=== PATIENT | male | born 1955 ===

== ENCOUNTER 2018-07-10 02:20 | Emergency (ER) | payer OTHER, SELFPAY ==
[2018-07-10 02:29] VITALS: BP 162/126; PULSE 131; RESP 18; TEMP 36.8; O2SAT 99; BMI 27.9
[2018-07-10 02:36] VITALS: BP 160/102; PULSE 78; RESP 14; O2SAT 100
[2018-07-10 03:30] VITALS: BP 125/84; PULSE 61; RESP 97; O2SAT 97
[2018-07-10 03:32] LABS: Add Manual Diff / Slide Review NO; Basophils Absolute Auto 0 /uL (0-100); Basophils Percent Auto 0.3 % (0-2); Eosinophils Absolute Auto 100 /uL (0-450); Eosinophils Percent Auto 1.3 % (2-4); Hematocrit 45.5 % (41-53); Hemoglobin 15.5 g/dL (13.5-17.5); Lymphocytes Absolute Auto 3700 /uL (1100-4500); Lymphocytes Percent Auto 47.8 % (25-40); Mean Corpuscular HGB Conc 34.1 % (30-36); Mean Corpuscular Hemoglobin 32.7 PG (26-34); Mean Corpuscular Volume 95.8 fL (80-100); Monocytes Absolute Auto 600 /uL (0-900); Monocytes Percent Auto 7.7 % (3-14); Neutrophils Absolute Auto 3300 /uL (1500-7000); Neutrophils Percent Auto 42.9 % (50-75); Platelet Count 174 X10^3/uL (150-400); Red Blood Cell Count 4.75 X10^6/uL (4.5-5.9); Red Cell Distribution Width 12.4 % (11.6-14.8); White Blood Cell Count 7.7 X10^3/uL (4.5-11.0)
[2018-07-10 03:37] LABS: Alanine Aminotransferase 25 IU/L (21-72); Albumin 4.7 g/dL (3.5-5.0); Albumin Globulin Ratio 1.6 (1.0-2.8); Alkaline Phosphatase 63 U/L (38-126); Aspartate Aminotransferase 26 IU/L (17-59); BUN Creatinine Ratio 16.7 (6-22); Bilirubin Total 0.5 mg/dL (0.2-1.3); Blood Urea Nitrogen 15 mg/dL (9-20); Calcium 9.1 mg/dL (8.4-10.2); Carbon Dioxide 27 mmol/L (22-32); Chloride 103 mmol/L (98-107); Estimated Glomerular Filt Rate > 60.0 mL/min (>60); Globulin 2.9 g/dL (1.7-4.1); Glucose 104 mg/dL (80-110); HEMOLYSIS < 15 (0-50); Potassium 3.8 mmol/L (3.4-5.1); Sodium 141 mmol/L (137-145); Total Protein 7.6 g/dL (6.3-8.2)
[2018-07-10 04:00] VITALS: BP 116/80; PULSE 62; RESP 16; O2SAT 97
[2018-07-10 04:06] VITALS: BP 116/80; PULSE 65
[2018-07-10] MEDS: DIGOXIN 0.125 MG TABLET PO (04:06)
[2018-07-10 04:07] LABS: Thyroid Stimulating Hormone 4.64 uIU/mL (0.47-4.68)
--- NOTE | 2018-07-10 04:09 | ED.ARRPALP ---
HPI - Arrhythmia/Palpitations General Chief Complaint: Arrhythmia/Palpitations Stated Complaint: states in afib Time Seen by Provider: 07/10/18 02:33 Source: patient and family Mode of arrival: ambulatory Limitations: no limitations History of Present Illness HPI narrative: Patient comes to the emergency department complaining of atrial fibrillation. He states he has a longstanding history of paroxysmal atrial fibrillation, but that in recent months, he has been having more and more episodes. He does note that over the last few weeks, he has been under lot of stress, and he thinks that this is partly triggering it. Patient also has a history of a hiatal hernia, and states that whenever he gets an esophageal spasm after eating, the AFib starts up. He states that when the spasm is relieved, the atrial fibrillation also goes away and he converts back to a normal rhythm. patient states he has seen cardiology and gastroenterology multiple times. He has had multiple cardiac workups with Cardiology, including for coronary artery disease, and none has been found. He has had endoscopy and been found to have a hiatal hernia, but states that while his doctor has mentioned that he may benefit from hernia repair, he has never seen a surgeon for this. He also states he has never been offered any intervention other than medication for his atrial fibrillation. Patient states he is very active, and in fact, he and his are planning to extended bike trip this summer for which he needs to be in good health. Patient states he is concerned about the atrial fibrillation interfering with his ability to travel. Patient denies any chest pain, shortness of breath, nausea, or cough. He states the episode is very much like previous episodes, but that it lasted for 6 hours this time, so he decided to come. Patient states he has had cardioversion for his AFib before, but that the atrial fibrillation has never lasted for even 24 hours. Related Data Home Medications Medication Instructions Recorded Confirmed aspirin 81 mg PO QDAY #0 07/06/16 09/20/17 lansoprazole 30 mg PO QDAY #0 07/06/16 09/20/17 Previous Rx's Medication Instructions Recorded ranitidine HCl 300 mg PO QDAY #30 tab 07/29/17 scopolamine 1 mg over 3 days 1 patch TRANSDERMAL Q3D PRN #1 each 03/24/18 transdermal patch propranolol 10 mg tablet 10 mg PO BID #100 tab 07/03/18 digoxin 0.125 mg PO DAILY #30 tab 07/10/18 Allergies Allergy/AdvReac Type Severity Reaction Status Date / Time No Known Drug Allergies Allergy Verified 07/10/18 04:05 Review of Systems Constitutional Denies chills, Denies fever(s), Denies lethargy and Denies weakness Eyes Denies change in vision, Denies eye discharge, Denies irritation and Denies loss of vision ENT Ears, Nose, Mouth, and Throat: Denies change in voice, Denies neck pain and Denies sore throat Cardiovascular Denies chest pain, Denies irregular heart rhythm, Denies lightheadedness, Reports palpitations, Denies dyspnea, Denies dyspnea on exertion and Denies orthopnea Respiratory Denies cough, Denies dyspnea, Denies dyspnea on exertion and Denies wheezing Gastrointestinal Gastrointestinal: Denies abdominal pain, Denies change in bowel habits, Denies diarrhea, Denies nausea and Denies vomiting Genitourinary Denies hematuria, Denies flank pain, Denies urinary incontinence and Denies urinary urgency Musculoskeletal Denies neck pain Integumentary/Breasts Denies pruritus, Denies erythema, Denies rash and Denies wounds Neurologic Denies confusion, Denies loss of vision and Denies weakness Psychiatric Denies anxiety, Denies confusion, Denies depression, Denies homicidal ideation and Denies suicidal ideation Endocrine Reports palpitations Hematologic/Lymphatic Denies easy bruising Allergic/Immunologic Denies wheezing [facility] Medical History Ankle pain (Chronic ~2013) Atrial fibrillation (Chronic) Cardiac arrhythmia (Chronic) GERD (gastroesophageal reflux disease) (Chronic) Hyperlipidemia (Chronic) Migraines (Chronic) Vertigo (Chronic) Chicken pox (Resolved) Surgical History History of esophagogastroduodenoscopy (EGD) (~08/2013) History of esophagogastroduodenoscopy (EGD) (10/09/14) Status post appendectomy Status post colonoscopy (~08/2013) Family History (Updated 03/07/15 @ 00:00 by Nohemy Helm DO) Brother Age: 59 Heart disease Hypertension High cholesterol Depression Tobacco use disorder Father Depression Mother Age: 86 Depression Dementia without behavioral disturbance, unspecified dementia type Sister Age: 63 High cholesterol Depression Social History Smoking Status: Never smoker Family History Brother Age: 59 Heart disease Hypertension High cholesterol Depression Tobacco use disorder Father Depression Mother Age: 86 Depression Dementia without behavioral disturbance, unspecified dementia type Sister Age: 63 High cholesterol Depression Social History Smoking Status: Never smoker Exam Initial Vital Signs Initial Vital Signs: Vital Signs Temperature 98.3 F 07/10/18 02:29 Pulse Rate 131 H 07/10/18 02:29 Respiratory Rate 18 07/10/18 02:29 Blood Pressure 162/126 H 07/10/18 02:29 Pulse Oximetry 99 07/10/18 02:29 Const General: cooperative and well developed Nutritional Appearance: well nourished Orientation: alert, awake, oriented x3 and not confused HENMT Head: normocephalic and atraumatic Ears: external ears normal and TM's normal bilaterally Nose: external nose normal and No nasal discharge Face and sinus: sinuses nontender, face symmetric, no sinus tenderness and No dry mucous membranes Mouth: oral mucosae normal and moist mucous membranes Teeth and gingiva: dentition normal Throat: tonsils normal and uvula midline Eyes General: appearance normal, both eyes and all related structures Eyelids: eyelids normal Conjunctivae: conjunctivae normal Sclera: sclerae normal Pupils: PERRL EOM: EOM intact bilaterally Neck Neck: normal visual inspection, trachea midline, No lymphadenopathy, No midline deformity and No JVD Lymphatic: No lymphedema Chest Chest: normal inspection of the chest Resp Effort & Inspection: normal respiratory effort, able to speak in complete sentences, no respiratory distress and no use of accessory muscles Auscultation: clear to auscultation bilaterally, no rales, no rhonchi and no wheezes Cardio Rate: regular rate Rhythm: regular rhythm Heart Sounds: no click, no gallops, no murmurs and no rubs Pulses: normal peripheral pulses GI Inspection: non-distended Palpation: soft, no hepatosplenomegaly, No guarding, No pulsatile mass and No tender Auscultation: normal bowel sounds Back/Spine/Pelvis Back: No CVA tenderness Cervical Spine: cervical ROM normal and No pain with cervical ROM Thoracic/Lumbar Spine: thoracic and lumbar spine normal to inspection Skin General: no rashes or lesions noted, No jaundice and No petechiae Neuro General: alert, oriented x3, gait normal and no focal motor deficits Speech: speech normal Extrem General: full ROM, no clubbing, cyanosis or edema, no pedal edema and no calf tenderness Psych Appearance: well kempt Mental Status: mental status grossly normal Attitude: cooperative Thought Content: normal and suicidality Judgment: judgment good Course Course Narrative: Patient converted to a normal sinus rhythm shortly after arriving in the emergency department. He remained in normal sinus rhythm throughout his stay here, and was asymptomatic. I discussed with the patient and his at length that the patient should seek specially follow up with the intent of obtaining definitive management of an intervention for his hiatal hernia and his atrial fibrillation. 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 His laboratory studies were unremarkable, and EKG was without acute findings. I felt the patient was stable for discharge home. Orders Ordered: ED Orders 07/10/18 EKG-12 Lead Routine 07/10/18 02:22 EKG-12 Lead Stat 07/10/18 02:33 Complete Blood Count AUTO DIFF Stat Comprehensive Metabolic Panel Stat Thyroid Stimulating Hormone Stat Discontinued Medications Digoxin (Lanoxin) 0.125 mg PO NOW ONE Stop: 07/10/18 03:55 Last Admin: 07/10/18 04:06 Dose: 0.125 mg Vital Signs - 8 hr 07/10/18 02:29 07/10/18 02:36 07/10/18 03:30 Temperature 98.3 F Pulse Rate 131 H 78 61 Respiratory Rate 18 14 97 H Blood Pressure 162/126 H Blood Pressure [Left Arm] 160/102 H 125/84 Pulse Oximetry 99 100 97 07/10/18 04:00 07/10/18 04:06 Temperature Pulse Rate 62 65 Respiratory Rate 16 Blood Pressure 116/80 Blood Pressure [Left Arm] 116/80 Pulse Oximetry 97 MDM - Arrhythmia/Palpitations Medical Records Attestation: I reviewed the patient's medical records. Lab Data Attestation: I reviewed the patient's lab results. Result diagrams: 07/10/18 02:33 07/10/18 02:33 Lab Results 07/10/18 07/10/18 07/10/18 Range/Units 02:33 02:33 02:33 WBC 7.7 (4.5-11.0) X10^3/uL RBC 4.75 (4.5-5.9) X10^6/uL Hgb 15.5 (13.5-17.5) g/dL Hct 45.5 (41-53) % MCV 95.8 (80-100) fL MCH 32.7 (26-34) PG MCHC 34.1 (30-36) % RDW 12.4 (11.6-14.8) % Plt Count 174 (150-400) X10^3/uL Neut % (Auto) 42.9 L (50-75) % Lymph % (Auto) 47.8 H (25-40) % [place] % (Auto) 7.7 (3-14) % Eos % (Auto) 1.3 L (2-4) % Baso % (Auto) 0.3 (0-2) % Neut # (Auto) 3300 (3616-9524) /uL Lymph # (Auto) 3700 (9313-8821) /uL [place] # (Auto) 600 (0-900) /uL Eos # (Auto) 100 (0-450) /uL Baso # (Auto) 0 (0-100) /uL Sodium 141 (137-145) mmol/L Potassium 3.8 (3.4-5.1) mmol/L Chloride 103 (98-107) mmol/L Carbon Dioxide 27 (22-32) mmol/L BUN 15 (9-20) mg/dL Creatinine 0.90 (0.66-1.25) mg/dL Estimated GFR > 60.0 (>60) mL/min BUN/Creatinine Ratio 16.7 (6-22) Glucose 104 (80-110) mg/dL Calcium 9.1 (8.4-10.2) mg/dL Total Bilirubin 0.5 (0.2-1.3) mg/dL AST 26 (17-59) IU/L ALT 25 (21-72) IU/L Alkaline Phosphatase 63 (38-126) U/L Total Protein 7.6 (6.3-8.2) g/dL Albumin 4.7 (3.5-5.0) g/dL Globulin 2.9 (1.7-4.1) g/dL Albumin/Globulin Ratio 1.6 (1.0-2.8) TSH 4.64 (0.47-4.68) uIU/mL ECG Data Attestation: I personally reviewed and interpreted this ECG as follows: (See below) Interpretation: Twelve lead EKG performed July 10, 2018 at 2:33 a.m., as follows: Regular ventricular rhythm with a rate of 70 beats per minute [place] interval 148 milliseconds QRS duration 96 millisecond QTC interval 398 millisecond [place] normal Insignificant ST depression lead II Interpretation: Normal sinus rhythm with occasional supraventricular premature complexes; minimal ST depression; borderline EKG as interpreted by ED MD. Discharge Plan Departure Patient Disposition: Home Clinical Impression: Atrial fibrillation with RVR Discharge Date/Time: 07/10/18 04:35 Interventions: ED Discharge Assessment Last Done: 07/10/18 04:58 Instructions: DI for Atrial Fibrillation Activity Restrictions/Additional Instructions: Your labs look good today. You have converted back into a normal rhythm. We have also given you a dose of medication to help prevent further atrial fibrillation. Please arrange follow-up with Cardiology and Surgery, as we have discussed, to discuss definitive treatment of your conditions. Prescriptions: New digoxin 125 mcg tablet 0.125 mg PO DAILY Qty: 30 RF: 0 No Action lansoprazole 30 MG capsule,delayed release(DR/EC) 30 mg PO QDAY Qty: 0 RF: 0 aspirin 81 MG tablet,chewable 81 mg PO QDAY Qty: 0 RF: 0 ranitidine HCl 300 mg tablet 300 mg PO QDAY Qty: 30 RF: 6 scopolamine base 1 mg over 3 days patch 3 day 1 patch Transdermal Q3D PRN (Reason: motion sickness) Qty: 1 RF: 0 propranolol 10 mg tablet 10 mg PO BID Qty: 100 RF: 5 Referrals: [facility] [Provider Group] [facility] Cardiology [Provider Group] [facility] [Provider Group] (Ask for cardiology) Miguel Carver MD [Primary Care Provider] -
--- NOTE | 2018-07-10 04:27 | ED_ITS ---
HPI - Arrhythmia/Palpitations General Chief Complaint: Arrhythmia/Palpitations Stated Complaint: states in afib Time Seen by Provider: 07/10/18 02:33 Source: patient and family Mode of arrival: ambulatory Limitations: no limitations History of Present Illness HPI narrative: Patient comes to the emergency department complaining of atrial fibrillation. He states he has a longstanding history of paroxysmal atrial fi brillation, but that in recent months, he has been having more and more episodes. He does note that over the last few weeks, he has been under lot of stress, and he thinks that this is partly triggering it. Patient also has a history of a hiatal hernia, and states that whenever he gets an esophageal spasm after eating, the AFib starts up. He states that when the spasm is relieved, the atrial fibrillation also goes away and he converts back to a normal rhythm. patient states he has seen cardiology and gastroenterology multiple times. He has had multiple cardiac workups with Cardiology, including for coronary artery disease, and none has been found. He has had endoscopy and been found to have a hiatal hernia, but states that while his doctor has mentioned that he may benefit from hernia repair, he has never seen a surgeon for this. He also states he has never been offered any intervention other than medication for his atrial fibrillation. Patient states he is very active, and in fact, he and his are planning to extended bike trip this summer for which he needs to be in good health. Patient states he is concerned about the atrial fibrillation interfering with his ability to travel. Patient denies any chest pain, shortness of breath, nausea, or cough. He states the episode is very much like previous episodes, but that it lasted for 6 hours this time, so he decided to come. Patient states he has had cardioversion for his AFib before, but that the atrial fibrillation has never lasted for even 24 hours. Related Data Home Medications Medication Instructions Recorded Confirmed aspirin 81 mg PO QDAY #0 07/06/16 09/20/17 lansoprazole 30 mg PO QDAY #0 07/06/16 09/20/17 Previous Rx's Medication Instructions Recorded ranitidine HCl 300 mg PO QDAY #30 tab 07/29/17 scopolamine 1 mg over 3 days 1 patch TRANSDERMAL Q3D PRN #1 each 03/24/18 transdermal patch propranolol 10 mg tablet 10 mg PO BID #100 tab 07/03/18 digoxin 0.125 mg PO DAILY #30 tab 07/10/18 Allergies Allergy/AdvReac Type Severity Reaction Status Date / Time No Known Drug Allergies Allergy Verified 07/10/18 04:05 Review of Systems Constitutional Denies chills, Denies fever(s), Denies lethargy and Denies weakness Eyes Denies change in vision, Denies eye discharge, Denies irritation and Denies loss of vision ENT Ears, Nose, Mouth, and Throat: Denies change in voice, Denies neck pain and Denies sore throat Cardiovascular Denies chest pain, Denies irregular heart rhythm, Denies lightheadedness, Reports palpitations, Denies dyspnea, Denies dyspnea on exertion and Denies orthopnea Respiratory Denies cough, Denies dyspnea, Denies dyspnea on exertion and Denies wheezing Gastrointestinal Gastrointestinal: Denies abdominal pain, Denies change in bowel habits, Denies diarrhea, Denies nausea and Denies vomiting Genitourinary Denies hematuria, Denies flank pain, Denies urinary incontinence and Denies urinary urgency Musculoskeletal Denies neck pain Integumentary/Breasts Denies pruritus, Denies erythema, Denies rash and Denies wounds Neurologic Denies confusion, Denies loss of vision and Denies weakness Psychiatric Denies anxiety, Denies confusion, Denies depression, Denies homicidal ideation and Denies suicidal ideation Endocrine Reports palpitations Hematologic/Lymphatic Denies easy bruising Allergic/Immunologic Denies wheezing [facility] Medical History Ankle pain (Chronic ~2013) Atrial fibrillation (Chronic) Cardiac arrhythmia (Chronic) GERD (gastroesophageal reflux disease) (Chronic) Hyperlipidemia (Chronic) Migraines (Chronic) Vertigo (Chronic) Chicken pox (Resolved) Surgical History History of esophagogastroduodenoscopy (EGD) (~08/2013) History of esophagogastroduodenoscopy (EGD) (10/09/14) Status post appendectomy Status post colonoscopy (~08/2013) Family History (Updated 03/07/15 @ 00:00 by Nohemy Helm DO) Brother Age: 59 Heart disease Hypertension High cholesterol Depression Tobacco use disorder Father Depression Mother Age: 86 Depression Dementia without behavioral disturbance, unspecified dementia type Sister Age: 63 High cholesterol Depression Social History Smoking Status: Never smoker Family History Brother Age: 59 Heart disease Hypertension High cholesterol Depression Tobacco use disorder Father Depression Mother Age: 86 Depression Dementia without behavioral disturbance, unspecified dementia type Sister Age: 63 High cholesterol Depression Social History Smoking Status: Never smoker Exam Initial Vital Signs Initial Vital Signs: Vital Signs Temperature 98.3 F 07/10/18 02:29 Pulse Rate 131 H 07/10/18 02:29 Respiratory Rate 18 07/10/18 02:29 Blood Pressure 162/126 H 07/10/18 02:29 Pulse Oximetry 99 07/10/18 02:29 Const General: cooperative and well developed Nutritional Appearance: well nourished Orientation: alert, awake, oriented x3 and not confused HENMT Head: normocephalic and atraumatic Ears: external ears normal and TM's normal bilaterally Nose: external nose normal and No nasal discharge Face and sinus: sinuses nontender, face symmetric, no sinus tenderness and No dry mucous membranes Mouth: oral mucosae normal and moist mucous membranes Teeth and gingiva: dentition normal Throat: tonsils normal and uvula midline Eyes General: appearance normal, both eyes and all related structures Eyelids: eyelids normal Conjunctivae: conjunctivae normal Sclera: sclerae normal Pupils: PERRL EOM: EOM intact bilaterally Neck Neck: normal visual inspection, trachea midline, No lymphadenopathy, No midline deformity and No JVD Lymphatic: No lymphedema Chest Chest: normal inspection of the chest Resp Effort & Inspection: normal respiratory effort, able to speak in complete sentences, no respiratory distress and no use of accessory muscles Auscultation: clear to auscultation bilaterally, no rales, no rhonchi and no wheezes Cardio Rate: regular rate Rhythm: regular rhythm Heart Sounds: no click, no gallops, no murmurs and no rubs Pulses: normal peripheral pulses GI Inspection: non-distended Palpation: soft, no hepatosplenomegaly, No guarding, No pulsatile mass and No tender Auscultation: normal bowel sounds Back/Spine/Pelvis Back: No CVA tenderness Cervical Spine: cervical ROM normal and No pain with cervical ROM Thoracic/Lumbar Spine: thoracic and lumbar spine normal to inspection Skin General: no rashes or lesions noted, No jaundice and No petechiae Neuro General: alert, oriented x3, gait normal and no focal motor deficits Speech: speech normal Extrem General: full ROM, no clubbing, cyanosis or edema, no pedal edema and no calf tenderness Psych Appearance: well kempt Mental Status: mental status grossly normal Attitude: cooperative Thought Content: normal and suicidality Judgment: judgment good Course Course Narrative: Patient converted to a normal sinus rhythm shortly after a rriving in the emergency department. He remained in normal sinus rhythm throughout his stay here, and was asymptomatic. I discussed with the patient and his at length that the patient should seek specially follow up with the intent of obtaining definitive management of an intervention for his hiatal hernia and his atrial fibrillation. 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 His laboratory studies were unremarkable, and EKG was without acute findings. I felt the patient was stable for discharge home. Orders Ordered: ED Orders 07/10/18 EKG-12 Lead Routine 07/10/18 02:22 EKG-12 Lead Stat 07/10/18 02:33 Complete Blood Count AUTO DIFF Stat Comprehensive Metabolic Panel Stat Thyroid Stimulating Hormone Stat Discontinued Medications Digoxin (Lanoxin) 0.125 mg PO NOW ONE Stop: 07/10/18 03:55 Last Admin: 07/10/18 04:06 Dose: 0.125 mg Vital Signs - 8 hr 07/10/18 02:29 07/10/18 02:36 07/10/18 03:30 Temperature 98.3 F Pulse Rate 131 H 78 61 Respiratory Rate 18 14 97 H Blood Pressure 162/126 H Blood Pressure [Left Arm] 160/102 H 125/84 Pulse Oximetry 99 100 97 07/10/18 04:00 07/10/18 04:06 Temperature Pulse Rate 62 65 Respiratory Rate 16 Blood Pressure 116/80 Blood Pressure [Left Arm] 116/80 Pulse Oximetry 97 MDM - Arrhythmia/Palpitations Medical Records Attestation: I reviewed the patient's medical records. Lab Data Attestation: I reviewed the patient's lab results. Result diagrams: 07/10/18 02:33 07/10/18 02:33 Lab Results 07/10/18 07/10/18 07/10/18 Range/Units 02:33 02:33 02:33 WBC 7.7 (4.5-11.0) X10^3/uL RBC 4.75 (4.5-5.9) X10^6/uL Hgb 15.5 (13.5-17.5) g/dL Hct 45.5 (41-53) % MCV 95.8 (80-100) fL MCH 32.7 (26-34) PG MCHC 34.1 (30-36) % RDW 12.4 (11.6-14.8) % Plt Count 174 (150-400) X10^3/uL Neut % (Auto) 42.9 L (50-75) % Lymph % (Auto) 47.8 H (25-40) % [place] % (Auto) 7.7 (3-14) % Eos % (Auto) 1.3 L (2-4) % Baso % (Auto) 0.3 (0-2) % Neut # (Auto) 3300 (4862-1098) /uL Lymph # (Auto) 3700 (9111-8940) /uL [place] # (Auto) 600 (0-900) /uL Eos # (Auto) 100 (0-450) /uL Baso # (Auto) 0 (0-100) /uL Sodium 141 (137-145) mmol/L Potassium 3.8 (3.4-5.1) mmol/L Chloride 103 (98-107) mmol/L Carbon Dioxide 27 (22-32) mmol/L BUN 15 (9-20) mg/dL Creatinine 0.90 (0.66-1.25) mg/dL Estimated GFR > 60.0 (>60) mL/min BUN/Creatinine Ratio 16.7 (6-22) Glucose 104 (80-110) mg/dL Calcium 9.1 (8.4-10.2) mg/dL Total Bilirubin 0.5 (0.2-1.3) mg/dL AST 26 (17-59) IU/L ALT 25 (21-72) IU/L Alkaline Phosphatase 63 (38-126) U/L Total Protein 7.6 (6.3-8.2) g/dL Albumin 4.7 (3.5-5.0) g/dL Globulin 2.9 (1.7-4.1) g/dL Albumin/Globulin Ratio 1.6 (1.0-2.8) TSH 4.64 (0.47-4.68) uIU/mL ECG Data Attestation: I personally reviewed and interpreted this ECG as follows: (See below) Interpretation: Twelve lead EKG performed July 10, 2018 at 2:33 a.m., as follows: Regular ventricular rhythm with a rate of 70 beats per minute [place] interval 148 milliseconds QRS duration 96 millisecond QTC interval 398 millisecond [place] normal Insignificant ST depression lead II Interpretation: Normal sinus rhythm with occasional supraventricular premature complexes; minimal ST depression; borderline EKG as interpreted by ED MD. Discharge Plan Departure Patient Disposition: Home Clinical Impression: Atrial fibrillation with RVR Discharge Date/Time: 07/10/18 04:35 Interventions: ED Discharge Assessment Last Done: 07/10/18 04:58 Instructions: DI for Atrial Fibrillation Activity Restrictions/Additional Instructions: Your labs look good today. You have converted back into a normal rhythm. We have also given you a dose of medication to help prevent further atrial fibrill ation. Please arrange follow-up with Cardiology and Surgery, as we have discussed, to discuss definitive treatment of your conditions. Prescriptions: New digoxin 125 mcg tablet 0.125 mg PO DAILY Qty: 30 RF: 0 No Action lansoprazole 30 MG capsule,delayed release(DR/EC) 30 mg PO QDAY Qty: 0 RF: 0 aspirin 81 MG tablet,chewable 81 mg PO QDAY Qty: 0 RF: 0 ranitidine HCl 300 mg tablet 300 mg PO QDAY Qty: 30 RF: 6 scopolamine base 1 mg over 3 days patch 3 day 1 patch Transdermal Q3D PRN (Reason: motion sickness) Qty: 1 RF: 0 propranolol 10 mg tablet 10 mg PO BID Qty: 100 RF: 5 Referrals: [facility] [Provider Group] [facility] Cardiology [Provider Group] [facility] [Provider Group] (Ask for cardiology) Miguel Carver MD [Primary Care Provider] -
== END 2018-07-10 04:35 | disposition home or self-care (01) ==
PROVIDERS: Emergency Provider Emergency Medicine; Family Provider Family Medicine; PCP Family Medicine
DX: I48.91 Unspecified atrial fibrillation (principal)
CPT/HCPCS: 36591; 80053; 84443; 85025; 93005; 93041; 99283; 99284

== ENCOUNTER 2018-07-12 09:42 | Emergency (ER) | payer OTHER, SELFPAY ==
[2018-07-12] VITALS (7 sets, daily range): BP systolic 113–133; BP diastolic 77–94; PULSE 61–160; RESP 12–19; TEMP 36.7; O2SAT 98–100
--- NOTE | 2018-07-12 10:01 | ED.ARRPALP ---
HPI - Arrhythmia/Palpitations General Chief Complaint: Arrhythmia/Palpitations Stated Complaint: AFIB Time Seen by Provider: 07/12/18 10:01 Source: patient Mode of arrival: ambulatory Limitations: no limitations History of Present Illness HPI narrative: Patient is a 63-year-old male who presents with atrial fibrillation. He has been having more frequent episodes of paroxysmal atrial fibrillation. He says that his epigastric pain throws them into AFib. He was here 07/10/2018 for the same he self converted in the emergency department. He has previously been cardioverted. He has an appointment with a water meter mechanic next week to discuss things because he has been having more episodes. He also has a GI doctor. He has this pain cramping sensation in his epigastric area. Pat he is taking a PPI daily. He says actually ibuprofen helps with pain. He does have pain the left upper quadrant than the right upper quadrant. He says typically food actually put some and AFib it lasts anywhere from 20 minutes to 4 hours this current episode has been 13 hours. MD complaint: rapid heart beat Duration: intermittent Severity: moderate Context: occurred during rest Related Data Home Medications Medication Instructions Recorded Confirmed aspirin 81 mg PO QDAY #0 07/06/16 07/12/18 lansoprazole 30 mg PO DAILY #0 07/06/16 07/12/18 alprazolam [Xanax] 0.25 - 0.5 mg PO Q6H PRN 07/12/18 07/12/18 ibuprofen 1 dose PO PRN PRN 07/12/18 07/12/18 ranitidine HCl 300 mg PO DAILY 07/12/18 07/12/18 Previous Rx's Medication Instructions Recorded apixaban [Eliquis] 5 mg PO BID #60 tab 07/12/18 metoprolol tartrate 25 mg PO BID #60 tab 07/12/18 Allergies Allergy/AdvReac Type Severity Reaction Status Date / Time No Known Drug Allergies Allergy Verified 07/10/18 04:05 Review of Systems Review of Systems GENERAL: Denies chills, fatigue, malaise, fever, sweats, travel HEENT: Denies sinus pain, ear pain, sore throat, difficulty swallowing, neck pain RESPIRATORY: Denies dyspnea, cough, wheezing, hemoptysis, sputum. CARDIOVASCULAR: See HPI GASTROINTESTINAL: Denies nausea, vomiting, abdominal pain, diarrhea, constipation, melena. : Denies dysuria, frequency, incontinence, hematuria, urinary retention, flank pain. MUSCULOSKELETAL: Denies weakness, joint pain, or bony pain SKIN: No rash, no erythema, no pruritus NEUROLOGIC: Denies weakness, dizziness, headache, numbness, change in speech, confusion PSYCHIATRIC: No concerning psychosocial issues. 12 point review of systems is negative except for those stated above and HPI PFSH Medical History Ankle pain (Chronic ~2013) Atrial fibrillation (Chronic) Cardiac arrhythmia (Chronic) GERD (gastroesophageal reflux disease) (Chronic) Hyperlipidemia (Chronic) Migraines (Chronic) Vertigo (Chronic) Chicken pox (Resolved) Surgical History History of esophagogastroduodenoscopy (EGD) (~08/2013) History of esophagogastroduodenoscopy (EGD) (10/09/14) Status post appendectomy Status post colonoscopy (~08/2013) Family History Brother Age: 59 Heart disease Hypertension High cholesterol Depression Tobacco use disorder Father Depression Mother Age: 86 Depression Dementia without behavioral disturbance, unspecified dementia type Sister Age: 63 High cholesterol Depression Social History Smoking Status: Never smoker Family History Brother Age: 59 Heart disease Hypertension High cholesterol Depression Tobacco use disorder Father Depression Mother Age: 86 Depression Dementia without behavioral disturbance, unspecified dementia type Sister Age: 63 High cholesterol Depression Social History Smoking Status: Never smoker Exam Initial Vital Signs Initial Vital Signs: Vital Signs Temperature 98.0 F 07/12/18 09:45 Pulse Rate 160 H 07/12/18 09:45 Respiratory Rate 19 07/12/18 09:45 Blood Pressure 133/86 07/12/18 09:45 Pulse Oximetry 100 07/12/18 09:45 GENERAL: Well-appearing, well-nourished and in no acute distress. HEENT: Head atraumatic,EOMI, pupils reactive, face symmetric, moist mucous membranes CARDIOVASCULAR: Irregularly irregular no murmur RESPIRATORY: Breath sounds equal bilaterally, no wheezes rales or rhonchi. ABDOMEN: Soft, mild epigastric tenderness mild left upper quadrant tenderness no right upper quadrant tenderness no guarding no rebound EXTREMITIES: Normal range of motion, no clubbing or edema. Neurovascularly intact NEUROLOGICAL: Alert and oriented x4.Normal gait and speech. Cranial nerves II through XII grossly intact. SKIN: Warm, dry, no laceration, no petechiae, no rashes or lesions. Course Orders Ordered: ED Orders 07/12/18 09:49 EKG-12 Lead Stat 07/12/18 10:02 XR chest 1V Stat 07/12/18 10:05 Lipase Stat 07/12/18 10:06 Complete Blood Count AUTO DIFF Stat Comprehensive Metabolic Panel Stat Magnesium Stat Partial Thromboplastin Time Stat Prothrombin Time INR Stat Troponin & CK Cardiac Panel Stat Discontinued Medications Apixaban (Eliquis) 5 mg PO NOW ONE Stop: 07/12/18 12:16 Last Admin: 07/12/18 12:19 Dose: 5 mg Diltiazem HCl (Cardizem) 10 mg IV NOW ONE Stop: 07/12/18 10:02 Last Admin: 07/12/18 10:13 Dose: 10 mg Sodium Chloride (Normal Saline 0.9%) 1,000 mls @ 1,000 mls/hr IV CONT ADRIANA Last Infusion: 07/12/18 12:02 Dose: 0 mls/hr Admin: 07/12/18 10:13 Dose: 1,000 mls/hr Famotidine (Pepcid) 20 mg in 50 mls @ 200 mls/hr IV NOW ONE Stop: 07/12/18 10:22 Last Infusion: 07/12/18 10:44 Dose: 0 mls/hr Admin: 07/12/18 10:16 Dose: 200 mls/hr Metoprolol Tartrate (Lopressor) 25 mg PO NOW ONE Stop: 07/12/18 11:53 Last Admin: 07/12/18 12:15 Dose: 25 mg Warfarin Sodium (Coumadin) 5 mg PO NOW ONE Stop: 07/12/18 11:53 Last Admin: 07/12/18 12:34 Dose: Not Given Vital Signs - 8 hr 07/12/18 09:45 07/12/18 10:30 07/12/18 11:02 Temperature 98.0 F Pulse Rate 160 H 103 H 86 Respiratory Rate 19 18 12 Blood Pressure 133/86 Blood Pressure [Right Arm] 123/83 114/81 Pulse Oximetry 100 100 100 07/12/18 11:30 07/12/18 12:00 07/12/18 12:30 Temperature Pulse Rate 91 H 78 100 H Respiratory Rate 16 18 14 Blood Pressure Blood Pressure [Right Arm] 113/77 128/88 128/88 Pulse Oximetry 100 99 98 07/12/18 13:05 Temperature Pulse Rate 61 Respiratory Rate Blood Pressure 121/94 H Blood Pressure [Right Arm] Pulse Oximetry 100 MDM - Arrhythmia/Palpitations Lab Data Attestation: I reviewed the patient's lab results. Result diagrams: 07/12/18 10:06 07/12/18 10:06 Lab Results 07/12/18 07/12/18 07/12/18 Range/Units 10:05 10:06 10:06 WBC (4.5-11.0) X10^3/uL RBC (4.5-5.9) X10^6/uL Hgb (13.5-17.5) g/dL Hct (41-53) % MCV (80-100) fL MCH (26-34) PG MCHC (30-36) % RDW (11.6-14.8) % Plt Count (150-400) X10^3/uL Neut % (Auto) (50-75) % Lymph % (Auto) (25-40) % [place] % (Auto) (3-14) % Eos % (Auto) (2-4) % Baso % (Auto) (0-2) % Neut # (Auto) (1056-6588) /uL Lymph # (Auto) (9421-3229) /uL [place] # (Auto) (0-900) /uL Eos # (Auto) (0-450) /uL Baso # (Auto) (0-100) /uL PT 11.5 (10.1-12.7) SECONDS INR 1.0 (0.9-1.3) APTT 27 (26.4-36.2) SECONDS Sodium 138 (137-145) mmol/L Potassium 4.6 (3.4-5.1) mmol/L Chloride 102 (98-107) mmol/L Carbon Dioxide 24 (22-32) mmol/L BUN 16 (9-20) mg/dL Creatinine 0.80 (0.66-1.25) mg/dL Estimated GFR > 60.0 (>60) mL/min BUN/Creatinine Ratio 20.0 (6-22) Glucose 111 H (80-110) mg/dL Calcium 9.9 (8.4-10.2) mg/dL Magnesium (1.6-2.3) mg/dL Total Bilirubin 1.0 (0.2-1.3) mg/dL AST 28 (17-59) IU/L ALT 28 (21-72) IU/L Alkaline Phosphatase 54 (38-126) U/L Total Creatine Kinase (55-170) U/L CK-MB (CK-2) CK-MB (CK-2) Rel Index Troponin I (0.01-0.034) ng/mL Total Protein 7.6 (6.3-8.2) g/dL Albumin 4.8 (3.5-5.0) g/dL Globulin 2.8 (1.7-4.1) g/dL Albumin/Globulin Ratio 1.7 (1.0-2.8) Lipase 126 (23-300) U/L 07/12/18 07/12/18 Range/Units 10:06 10:06 WBC 5.4 (4.5-11.0) X10^3/uL RBC 4.77 (4.5-5.9) X10^6/uL Hgb 15.7 (13.5-17.5) g/dL Hct 44.6 (41-53) % MCV 93.4 (80-100) fL MCH 32.9 (26-34) PG MCHC 35.2 (30-36) % RDW 12.3 (11.6-14.8) % Plt Count 152 (150-400) X10^3/uL Neut % (Auto) 58.2 (50-75) % Lymph % (Auto) 31.7 (25-40) % [place] % (Auto) 8.8 (3-14) % Eos % (Auto) 1.0 L (2-4) % Baso % (Auto) 0.3 (0-2) % Neut # (Auto) 3200 (2580-0282) /uL Lymph # (Auto) 1700 (0211-6441) /uL [place] # (Auto) 500 (0-900) /uL Eos # (Auto) 100 (0-450) /uL Baso # (Auto) 0 (0-100) /uL PT (10.1-12.7) SECONDS INR (0.9-1.3) APTT (26.4-36.2) SECONDS Sodium (137-145) mmol/L Potassium (3.4-5.1) mmol/L Chloride (98-107) mmol/L Carbon Dioxide (22-32) mmol/L BUN (9-20) mg/dL Creatinine (0.66-1.25) mg/dL Estimated GFR (>60) mL/min BUN/Creatinine Ratio (6-22) Glucose (80-110) mg/dL Calcium (8.4-10.2) mg/dL Magnesium 1.9 (1.6-2.3) mg/dL Total Bilirubin (0.2-1.3) mg/dL AST (17-59) IU/L ALT (21-72) IU/L Alkaline Phosphatase (38-126) U/L Total Creatine Kinase 95 (55-170) U/L CK-MB (CK-2) TNP CK-MB (CK-2) Rel Index TNP Troponin I < 0.012 (0.01-0.034) ng/mL Total Protein (6.3-8.2) g/dL Albumin (3.5-5.0) g/dL Globulin (1.7-4.1) g/dL Albumin/Globulin Ratio (1.0-2.8) Lipase (23-300) U/L Imaging Data Chest x-ray: Radiologist's impression: PROCEDURE: XR CHEST 1V INDICATIONS: chest pain TECHNIQUE: One view of the chest was acquired. COMPARISON: None. FINDINGS: Surgical changes and devices: None. Lungs and pleura: Lungs are clear. No pleural effusions or pneumothorax. Mediastinum: Mediastinal contours appear normal. Heart size is normal. Bones and chest wall: No suspicious bony lesions. Overlying soft tissues appear unremarkable. IMPRESSION: No acute cardiopulmonary disease process. Dictated by: Bharati Rivers MD, PhD on 07/12/2018 at 10:39 ECG Data Attestation: I personally reviewed and interpreted this ECG as follows: Prior ECG tracings: available for review Interpretation: AFib with RVR rate 161 similar Previous EKGs do show sinus rhythm. MDM Narrative Medical decision making narrative: At this time I do not believe patient to be a candidate for cardioversion. He has had 2 episodes of paroxysmal atrial fibrillation in the last 2 days. This time I think he needs be anticoagulated before cardioversion. I have discussed with him risks of stroke if doing so. He understands and agrees. I called and spoke with Dr. Abdullahi, water meter mechanic with [facility]. Patient has appointment with a nurse practitioner in 6 days. At this time recommend metoprolol and anticoagulation. I have discussed at length with patient and twice of anticoagulation Coumadin versus others. 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 We discussed risks of intracranial hemorrhage while doing a risky activities on anticoagulation. I recommended he not do those activities. We also discussed his reversal of Coumadin. At this time patient would like a newer anticoagulation medication. As I have written for Eliquis. He is agreeable to medication. He hopes for an ablation if needed. Discharge Plan Departure Patient Disposition: Home Clinical Impression: Atrial fibrillation with RVR Discharge Date/Time: 07/12/18 13:05 Interventions: ED Discharge Assessment Last Done: 07/12/18 13:05 Instructions: DI for Atrial Fibrillation Activity Restrictions/Additional Instructions: *You have been diagnosed with atrial fibrillation *What to do: He will be on a blood thinner called Eliquis. Is to help prevent strokes. You are at risk of bleeding. If you fallen hit her head you are to report to the nearest emergency department as soon as possible. *Continue to take medications as directed Medications sent to [facility] Stopped taking aspirin 81 mg daily--you are starting Eliquis Metoprolol 25 mg twice daily Eliquis 5 mg twice daily *Follow up with your primary care provider in 2-3 days *Return to ER if you should have increasing chest pain, shortness of breath dizziness lightheadedness or any new, worsening or concerning symptoms Prescriptions: New metoprolol tartrate 25 mg tablet 25 mg PO BID Qty: 60 RF: 0 Eliquis 5 mg tablet 5 mg PO BID Qty: 60 RF: 0 No Action lansoprazole 30 MG capsule,delayed release(DR/EC) 30 mg PO DAILY Qty: 0 RF: 0 aspirin 81 MG tablet,chewable 81 mg PO QDAY Qty: 0 RF: 0 ranitidine HCl 300 mg tablet 300 mg PO DAILY RF: 0 alprazolam [Xanax] 0.25 mg tablet 0.25 - 0.5 mg PO Q6H PRN (Reason: Anxiety) RF: 0 ibuprofen 200 mg Tablet 1 dose PO PRN PRN (Reason: pain) RF: 0 Referrals: Miguel Carver MD [Primary Care Provider] - Bradly Jimenez MD [Non-Staff] -
[2018-07-12 10:13] LABS: Add Manual Diff / Slide Review NO; Basophils Absolute Auto 0 /uL (0-100); Basophils Percent Auto 0.3 % (0-2); Eosinophils Absolute Auto 100 /uL (0-450); Hematocrit 44.6 % (41-53); Hemoglobin 15.7 g/dL (13.5-17.5); Lymphocytes Absolute Auto 1700 /uL (1100-4500); Lymphocytes Percent Auto 31.7 % (25-40); Mean Corpuscular HGB Conc 35.2 % (30-36); Mean Corpuscular Hemoglobin 32.9 PG (26-34); Mean Corpuscular Volume 93.4 fL (80-100); Monocytes Absolute Auto 500 /uL (0-900); Monocytes Percent Auto 8.8 % (3-14); Neutrophils Absolute Auto 3200 /uL (1500-7000); Neutrophils Percent Auto 58.2 % (50-75); Platelet Count 152 X10^3/uL (150-400); Red Blood Cell Count 4.77 X10^6/uL (4.5-5.9); Red Cell Distribution Width 12.3 % (11.6-14.8); White Blood Cell Count 5.4 X10^3/uL (4.5-11.0)
[2018-07-12] MEDS: dilTIAZem 5 MG/ML SDV 10 MG IV (10:13)
[2018-07-12] MEDS: SODIUM CHLORIDE 0.9% 1,000 ML 1000 ML IV (10:13)
[2018-07-12] MEDS: FAMOTIDINE 20 MG/50 ML PIGGYBACK 200 MG IV (10:16)
[2018-07-12 10:21] LABS: Prothrombin Time 11.5 SECONDS (10.1-12.7)
[2018-07-12 10:24] LABS: PTT Partial Thromboplastin Tim 27 SECONDS (26.4-36.2)
[2018-07-12 10:26] LABS: Alanine Aminotransferase 28 IU/L (21-72); Albumin 4.8 g/dL (3.5-5.0); Albumin Globulin Ratio 1.7 (1.0-2.8); Alkaline Phosphatase 54 U/L (38-126); Aspartate Aminotransferase 28 IU/L (17-59); Blood Urea Nitrogen 16 mg/dL (9-20); Calcium 9.9 mg/dL (8.4-10.2); Carbon Dioxide 24 mmol/L (22-32); Chloride 102 mmol/L (98-107); Estimated Glomerular Filt Rate > 60.0 mL/min (>60); Globulin 2.8 g/dL (1.7-4.1); Glucose 111 mg/dL (80-110); HEMOLYSIS 25 (0-50); Potassium 4.6 mmol/L (3.4-5.1); Sodium 138 mmol/L (137-145); Total Protein 7.6 g/dL (6.3-8.2)
[2018-07-12 10:27] LABS: Creatine Kinase 95 U/L (55-170); Magnesium 1.9 mg/dL (1.6-2.3)
[2018-07-12 10:27] LABS: Lipase 126 U/L (23-300)
[2018-07-12 10:37] LABS: Troponin I < 0.012 ng/mL (0.01-0.034)
[2018-07-12] MEDS: METOPROLOL IR 25 MG TABLET PO (12:15)
[2018-07-12] MEDS: APIXABAN 5 MG TABLET PO (12:19)
== END 2018-07-12 13:05 | disposition home or self-care (01) ==
PROVIDERS: Emergency Provider Emergency Medicine; Family Provider Family Medicine; PCP Family Medicine
DX: I48.91 Unspecified atrial fibrillation (principal); R10.13 Epigastric pain; Z79.82 Long term (current) use of aspirin
CPT/HCPCS: 36591; 71045; 80053; 82550; 83690; 83735; 84484; 85025; 85610; 85730; 93005; 96361; 96365; 96375; 99284; 99285

== ENCOUNTER → 2019-05-29 12:04 | Outpatient (CLI) | payer OTHER, SELFPAY ==
[2019-05-29 13:08] LABS: BUN Creatinine Ratio 17.7 (6-22); Blood Urea Nitrogen 14 mg/dL (9-20); Estimated Glomerular Filt Rate > 60.0 mL/min (>60)
[2019-05-29 13:35] LABS: Prostate Specific Antigen Scrn 0.959 ng/mL (0.1-4.0)
== END ==
PROVIDERS: Family Provider Family Medicine; PCP Student in an Organized Health Care Education/Training Program; Referring Provider Student in an Organized Health Care Education/Training Program; Visit Provider Student in an Organized Health Care Education/Training Program
DX: Z12.5 Encounter for screening for malignant neoplasm of prostate (principal); I10 Essential (primary) hypertension; Z79.899 Other long term (current) drug therapy
CPT/HCPCS: 36415; 82565; 84520; G0103

== ENCOUNTER 2020-03-10 15:38 | Emergency (ER) | payer OTHER, SELFPAY ==
[2020-03-10 16:59] VITALS: BP 168/98; PULSE 86; RESP 12; TEMP 36.8; O2SAT 99; BMI 27.9
--- NOTE | 2020-03-10 16:59 | DI.RAD.S_ITS ---
PROCEDURE: XR CHEST 1V INDICATIONS: chest pain TECHNIQUE: One view of the chest was acquired. COMPARISON: [facility], CR, XR CHEST 1V, 07/12/2018, 10:24. FINDINGS: Surgical changes and devices: None. Lungs and pleura: Lungs are clear. No pleural effusions or pneumothorax. Mediastinum: Mediastinal contours appear normal. Heart size is normal. Bones and chest wall: No suspicious bony lesions. Overlying soft tissues appear unremarkable. IMPRESSION: No acute cardiopulmonary findings. Dictated by: Renata Lea M.D. on 03/10/2020 at 17:39 Approved by: Renata Lea M.D. on 03/10/2020 at 17:39
[2020-03-10 17:07] LABS: Add Manual Diff / Slide Review NO; Basophils Absolute Auto 0 /uL (0-100); Basophils Percent Auto 0.4 % (0-2); Eosinophils Absolute Auto 0 /uL (0-450); Eosinophils Percent Auto 0.4 % (2-4); Hematocrit 45.5 % (41-53); Hemoglobin 15.7 g/dL (13.5-17.5); Lymphocytes Absolute Auto 1900 /uL (1100-4500); Mean Corpuscular HGB Conc 34.4 % (30-36); Mean Corpuscular Hemoglobin 32.5 PG (26-34); Mean Corpuscular Volume 94.7 fL (80-100); Monocytes Absolute Auto 500 /uL (0-900); Neutrophils Absolute Auto 6100 /uL (1500-7000); Neutrophils Percent Auto 71.2 % (50-75); Platelet Count 159 X10^3/uL (150-400); Red Blood Cell Count 4.81 X10^6/uL (4.5-5.9); Red Cell Distribution Width 12.1 % (11.6-14.8); White Blood Cell Count 8.5 X10^3/uL (4.5-11.0)
[2020-03-10 17:42] LABS: Prothrombin Time 11.4 SECONDS (10.1-12.7)
[2020-03-10 17:45] LABS: PTT Partial Thromboplastin Tim 33 SECONDS (26.4-36.2)
[2020-03-10 17:46] VITALS: PULSE 72; RESP 13; O2SAT 98
[2020-03-10 17:47] LABS: Alanine Aminotransferase 32 IU/L (<50); Albumin 4.8 g/dL (3.5-5.0); Albumin Globulin Ratio 1.4 (1.0-2.8); Alkaline Phosphatase 69 U/L (38-126); Aspartate Aminotransferase 33 IU/L (17-59); BUN Creatinine Ratio 17.8 (6-22); Bilirubin Total 0.9 mg/dL (0.2-1.3); Blood Urea Nitrogen 13 mg/dL (9-20); Calcium 9.4 mg/dL (8.4-10.2); Carbon Dioxide 27 mmol/L (22-32); Chloride 104 mmol/L (98-107); Creatine Kinase 123 U/L (55-170); Estimated Glomerular Filt Rate > 60.0 mL/min (>60); Globulin 3.5 g/dL (1.7-4.1); Glucose 84 mg/dL (80-110); HEMOLYSIS < 15 (0-50); Lipase 119 U/L (23-300); Sodium 138 mmol/L (137-145); Total Protein 8.3 g/dL (6.3-8.2)
--- NOTE | 2020-03-10 17:51 | ED_ITS ---
HPI - Chest Pain General Chief Complaint: Chest Pain Stated Complaint: chest cramps, passed out Time Seen by Provider: 03/10/20 16:55 Source: patient Mode of arrival: Ambulatory Limitations: no limitations History of Present Illness HPI narrative: 65-year-old male nonsmoker with history of GERD and hyperlipidemia presents with his in the chief complaint of an episode of epigastric spasming followed by dizziness and lightheadedness earlier today. He states he has been having episodes similar to this for quite some time these seem to be associated with eating. He states that it frequently happens after eating, causes spasming in his chest which can lead to palpitation eyes. He his palpitations had been frequent enough that he had an ablation a few years ago and telling him. He denies any change in medications or diet. He is very active and denies any exertional component to his symptoms. He states the spasming and cramping on is rather intense when it is happening, he denies any radiation, provocation or palliation. MD complaint: other Onset (ago): hour(s) Duration: intermittent Onset: after eating Pain location: epigastric Severity: moderate Quality: tightness Pain radiation: none Relieving factors: nothing Exacerbating factors: nothing Treatments prior to arrival chest pain: none Related Data Home Medications Medication Instructions Recorded Confirmed ibuprofen 1 dose PO PRN PRN 07/12/18 03/05/20 Previous Rx's Medication Instructions Recorded omeprazole 20 mg capsule,delayed 20 mg PO DAILY #90 cap 10/02/19 release alprazolam 0.25 mg tablet 0.125 - 0.25 mg PO DAILY PRN #10 03/05/20 tab lovastatin 20 mg tablet 20 mg PO DAILY #30 tab 03/05/20 Allergies Allergy/AdvReac Type Severity Reaction Status Date / Time simvastatin AdvReac Mild muscle Verified 03/05/20 14:32 cramps Review of Systems Constitutional Constitutional: Denies chills, Denies fatigue, Denies fever(s), Denies frequent falls, Denies lethargy and Denies weakness Eyes Eyes: Denies change in vision, Denies eye discharge, Denies irritation and Denies loss of vision ENT Ears, Nose, Mouth, and Throat: Denies change in voice, Denies dizziness, Denies neck pain, Denies sore throat and Denies throat swelling Cardiovascular Cardiovascular: Denies chest pain, Denies irregular heart rhythm, Denies lightheadedness, Denies palpitations, Denies dyspnea, Denies dyspnea on exertion and Denies orthopnea Comments: Near syncope Respiratory Respiratory: Denies cough, Denies dyspnea, Denies dyspnea on exertion and Denies wheezing Gastrointestinal Gastrointestinal: Reports abdominal pain (epigastric spasming), Denies change in bowel habits, Denies diarrhea, Denies nausea and Denies vomiting Musculoskeletal Musculoskeletal: Denies neck pain and Denies numbness Integumentary/Breasts Skin/Breast: Denies pruritus, Denies erythema, Denies rash and Denies wounds Neurologic Neurologic: Denies behavioral changes, Denies confusion, Denies dizziness, Denies frequent falls, Denies loss of vision, Denies numbness and Denies weakne ss Psychiatric Psychiatric: Denies anxiety, Denies behavioral changes, Denies confusion, Denies depression, Denies homicidal ideation and Denies suicidal ideation Endocrine Endocrine: Denies fatigue, Denies flushing and Denies palpitations Hematologic/Lymphatic Hematologic/Lymphatic: Denies easy bruising Allergic/Immunologic Allergic/Immunologic: Denies urticaria, Denies throat swelling and Denies wheezing Patient History Medical History Ankle pain (~2013) Atrial fibrillation Cardiac arrhythmia Chicken pox GERD (gastroesophageal reflux disease) Hyperlipidemia Migraines Vertigo Surgical History History of esophagogastroduodenoscopy (EGD) (~08/2013) History of esophagogastroduodenoscopy (EGD) (10/09/14) Status post appendectomy Status post colonoscopy (~08/2013) Family History Brother Age: 60 Heart disease Hypertension High cholesterol Depression Tobacco use disorder Father Depression Mother Age: 87 Depression Dementia without behavioral disturbance, unspecified dementia type Sister Age: 64 High cholesterol Depression Social History Smoking Status: Never smoker Smoking Status: Never smoker alcohol intake frequency: 0-2 drinks per day Substance Use Type: does not use Exam Narrative Exam Narrative: GENERAL: [65] year old patient appears stated age. Well- nourished, well-developed patient, in mild distress. HEAD: Atraumatic. Normocephalic. EYES: Pupils equal round and reactive. Extraocular motions intact. No scleral icterus. No injection or drainage. ENT: Nose without bleeding, purulent drainage. Throat without erythema, tonsillar hypertrophy or exudate. Airway patent. NECK: Trachea midline. Non tender CARDIOVASCULAR: Regular rate and rhythm without murmurs, gallops, or rubs. RESPIRATORY: Clear to auscultation. Breath sounds equal bilaterally. No wheezes, rales, or rhonchi. GASTROINTESTINAL: Abdomen soft, non-tender, nondistended. EXTREMITIES: No edema or joint tenderness. BACK: Nontender without deformity or crepitance. No flank tenderness. NEURO: AOx3. SKIN: No rash or erythema of visible areas Initial Vital Signs Initial Vital Signs: Vital Signs Temperature 98.2 F 03/10/20 16:59 Pulse Rate 86 03/10/20 16:59 Respiratory Rate 12 03/10/20 16:59 Blood Pressure 168/98 H 03/10/20 16:59 Pulse Oximetry 99 03/10/20 16:59 Course Orders Ordered: ED Orders 03/10/20 16:54 Complete Blood Count AUTO DIFF Stat 03/10/20 16:59 XR chest 1V Stat 03/10/20 17:28 Comprehensive Metabolic Panel Stat Lipase Stat Partial Thromboplastin Time Stat Prothrombin Time INR Stat Troponin & CK Cardiac Panel Stat Vital Signs Vital signs: Vital Signs - 8 hr 03/10/20 16:59 Temperature 98.2 F Pulse Rate 86 Respiratory Rate 12 Blood Pressure 168/98 H Pulse Oximetry 99 MDM - Chest Pain Lab Data Result diagrams: 03/10/20 16:54 03/10/20 17:28 Labs: Lab Results 03/10/20 03/10/20 03/10/20 Range/Units 16:54 17:28 17:28 WBC 8.5 (4.5-11.0) X10^3/uL RBC 4.81 (4.5-5.9) X10^6/uL Hgb 15.7 (13.5-17.5) g/dL Hct 45.5 (41-53) % MCV 94.7 (80-100) fL MCH 32.5 (26-34) PG MCHC 34.4 (30-36) % RDW 12.1 (11.6-14.8) % Plt Count 159 (150-400) X10^3/uL Neut % (Auto) 71.2 (50-75) % Lymph % (Auto) 22.0 L (25-40) % [place] % (Auto) 6.0 (3-14) % Eos % (Auto) 0.4 L (2-4) % Baso % (Auto) 0.4 (0-2) % Neut # (Auto) 6100 (6782-1671) /uL Lymph # (Auto) 1900 (7923-5525) /uL [place] # (Auto) 500 (0-900) /uL Eos # (Auto) 0 (0-450) /uL Baso # (Auto) 0 (0-100) /uL PT 11.4 (10.1-12.7) SECONDS INR 1.0 (0.9-1.3) APTT 33 D (26.4-36.2) SECONDS Sodium 138 (137-145) mmol/L Potassium 4.0 (3.4-5.1) mmol/L Chloride 104 (98-107) mmol/L Carbon Dioxide 27 (22-32) mmol/L BUN 13 (9-20) mg/dL Creatinine 0.73 (0.66-1.25) mg/dL Estimated GFR > 60.0 (>60) mL/min BUN/Creatinine Ratio 17.8 (6-22) Glucose 84 (80-110) mg/dL Calcium 9.4 (8.4-10.2) mg/dL Total Bilirubin 0.9 (0.2-1.3) mg/dL AST 33 (17-59) IU/L ALT 32 (<50) IU/L Alkaline Phosphatase 69 (38-126) U/L Total Creatine Kinase 123 (55-170) U/L CK-MB (CK-2) 1.03 (<2.37) ng/mL CK-MB (CK-2) Rel Index 0.8 L (1.5-5.0) % Troponin I < 0.012 (0.01-0.034) ng/mL Total Protein 8.3 H (6.3-8.2) g/dL Albumin 4.8 (3.5-5.0) g/dL Globulin 3.5 (1.7-4.1) g/dL Albumin/Globulin Ratio 1.4 (1.0-2.8) Lipase 119 (23-300) U/L Urine Dip Bedside Urine Glucose Negative Bedside Urine Bilirubin - Negative Bedside Urine Ketone +++ 80 Urine Specific [place] 1.030 Bedside Urine Occult Blood +/- Bedside Urine pH 6.0 Bedside Urine Protein - Negative Bedside Urine Urobilinogen - Negative Bedside Urine Nitrite - Negative Bedside Urine Leukocytes - Negative Esterase Imaging Data Chest x-ray: Radiologist's Impression: Chart Viewer Diagnostics DATE TYPE STATUS REF RANGE/AUTHOR Hx 03/10/20 16:59 Renata Lea 02/27/19 01:00 Echocardiogram 07/12/18 10:02 SilvestreBharati smart James J 65, 05/12/1954 [facility] ER, [facility] ED 165.1cm 76.204kg BMI: 28.0kg/m? Chest Pain Search Chart No Data to Display muscle cramps ONSET 02/21/14 02/21/14 02/21/14 03/11/14 07/12/14 07/12/14 07/12/14 07/12/14 05/05/16 08/12/16 03/10/20 17:46 Zhou Sahu 65 M [address] [id number] ReportSigned Patient: Zhou Sahu R#: [id number]: 1955cct:[id number]/Sex: 64 / MDate of Service: 03/10/20Loc: EDAccession Number: [id number] Procedure: XR chest 1V Ordering Provider: Joseph Workman D.O. PROCEDURE: XR CHEST 1V INDICATIONS: chest pain TECHNIQUE: One view of the chest was acquired. COMPARISON: [facility], , XR CHEST 1V, 07/12/2018, 10:24. FINDINGS: Surgical changes and devices: None. Lungs and pleura: Lungs are clear. No pleural effusions or pneumothorax. Mediastinum: Mediastinal contours appear normal. Heart size is normal. Bones and chest wall: No suspicious bony lesions. Overlying soft tissues appear unremarkable. IMPRESSION: No acute cardiopulmonary findings. Dictated by: Renata Lea M.D. on 03/10/2020 at 17:39 Approved by: Renata Lea M.D. on 03/10/2020 at 17:39 ECG Data Interpretation: EKG is normal sinus rhythm rate [85 ] and free of any signs of ischemia Occasional PVC. No ST segmental elevation or depression. No T wave inversions MDM Narrative Medical decision making narrative: Multiple etiologies for patient's symptoms considered including: MO, PE, pneumothorax, pneumonia, aortic dissection, and pleurisy. Patient reports no radiation, no diaphoresis, no provocation with exertion, and no vomiting Patient's symptoms improved prior to arrival and is very consistent with prior episodes. He has a GI doctor and director audience marketing he plans to follow up with. and discharge diagnosis discussed with patient/family followed by verbalization of understanding Return precautions discussed with patient/family whom verbalize understanding. Discharge Plan Departure Patient Disposition: Home Clinical Impression: Heart palpitations, Near syncope Instructions: DI for Palpitations Activity Restrictions/Additional Instructions: *You have been diagnosed with [ palpitations, near syncope. Your labs, exam, and EKG are very reassuring. ] *What to do: *Take medications as directed *Follow up with your primary director audience marketing and cocoa mill operator in 2-3 days, call for an appointment. Let them know you were seen in the Emergency Department and that we ask that you be seen in follow up *Return to ER if you should have any new, worsening or concerning symptoms Prescriptions: No Action omeprazole 20 mg capsule,delayed release(DR/EC) 20 mg PO DAILY Qty: 90 RF: 3 lovastatin 20 mg tablet 20 mg PO DAILY Qty: 30 RF: 0 alprazolam 0.25 mg tablet 0.125 - 0.25 mg PO DAILY PRN (Reason: abdominal pain) Qty: 10 RF: 5 ibuprofen 200 mg Tablet 1 dose PO PRN PRN (Reason: pain) RF: 0
[2020-03-10 17:58] LABS: Troponin I < 0.012 ng/mL (0.01-0.034)
[2020-03-10 18:02] LABS: CKMB % Relative Index 0.8 % (1.5-5.0); Creatine Kinase MB 1.03 ng/mL (<2.37)
== END 2020-03-10 18:25 | disposition home or self-care (01) ==
PROVIDERS: Emergency Provider Emergency Medicine; Family Provider Family Medicine
DX: R00.2 Palpitations (principal); R07.9 Chest pain, unspecified; R55 Syncope and collapse
CPT/HCPCS: 36415; 71045; 80053; 81003; 82550; 82553; 83690; 84484; 85025; 85610; 85730; 93005; 99283; 99284

== ENCOUNTER → 2022-07-14 14:13 | Outpatient (CLI) | payer OTHER, SELFPAY ==
--- NOTE | 2022-07-14 14:17 | DI.RAD.S_ITS ---
PROCEDURE: XR RIBS LT MIN 3V W CXR1V INDICATIONS: Trauma, pain TECHNIQUE: 2 views of the left ribs were acquired, along with a single view chest. COMPARISON: None. FINDINGS: Surgical changes and devices: None. Bones and chest wall: No fractures or dislocations. No suspicious bony lesions. Overlying soft tissues appear unremarkable. Lungs and pleura: No pleural effusions or pneumothorax. Lungs appear clear. Mediastinum: Mediastinal contours appear normal. Heart size is normal. IMPRESSION: Unremarkable left rib radiographs. No fracture or pneumothorax Approved by: Souarv Gómez M.D. on 07/14/2022 at 17:30
--- NOTE | 2022-07-14 14:17 | DI.US.S_ITS ---
PROCEDURE: US ABDOMEN LIMITED INDICATIONS: Please evaluate for splenic injury TECHNIQUE: Real-time focused scanning was performed of the abdomen, with image documentation. COMPARISON: [facility], , ABDOMEN LIMITED, 01/12/2016, 8:46. FINDINGS: The spleen demonstrates a normal appearance, measuring up to 10.7 cm. No hematomas or fluid collections can be seen surrounding the spleen. No lacerations can be seen. No free fluid can be seen involving all 4 quadrants of the abdomen. IMPRESSION: No findings of splenic trauma by ultrasound. If it would be helpful for clinical management decision making in this patient with this given history, please consider a dedicated CT of the abdomen and pelvis with at least IV contrast for further evaluation. Dictated by: Perez Marc M.D. on 07/14/2022 at 15:15 Approved by: Perez Marc M.D. on 07/14/2022 at 15:16
== END ==
PROVIDERS: Family Provider Family Medicine; PCP Family Medicine; Referring Provider Registered Nurse; Visit Provider Registered Nurse
DX: S20.20XA Contusion of thorax, unspecified, initial encounter (principal); D69.6 Thrombocytopenia, unspecified
CPT/HCPCS: 71101; 76705

== ENCOUNTER → 2022-11-29 14:27 | Outpatient (ROUT) | payer OTHER, SELFPAY ==
[2022-11-29 15:07] LABS: Influenza A - CEPHEID Flu A NEGATIVE (NEGATIVE); Influenza B - CEPHEID Flu B NEGATIVE (NEGATIVE); Respiratory Syncytial Virus POSITIVE (Negative)
[2022-11-29 15:08] LABS: COVID-19 CEPHEID 4-PLEX PCR Negative (Negative)
== END ==
PROVIDERS: Family Provider Family Medicine; PCP Family Medicine; Visit Provider Family Medicine
DX: Z20.822 Contact with and (suspected) exposure to COVID-19 (principal)
CPT/HCPCS: 0241U

== ENCOUNTER → 2022-12-13 15:46 | Outpatient (ROUT) | payer OTHER, SELFPAY ==
[2022-12-13 16:36] LABS: Influenza A - CEPHEID Flu A NEGATIVE (NEGATIVE); Influenza B - CEPHEID Flu B NEGATIVE (NEGATIVE); Respiratory Syncytial Virus Negative (Negative)
[2022-12-13 16:42] LABS: COVID-19 CEPHEID 4-PLEX PCR Negative (Negative)
== END ==
PROVIDERS: Family Provider Family Medicine; PCP Family Medicine; Visit Provider Family Medicine
DX: J32.9 Chronic sinusitis, unspecified (principal); R05.9 Cough, unspecified
CPT/HCPCS: 0241U

== ENCOUNTER → 2022-12-27 16:13 | Outpatient (CLI) | payer OTHER, SELFPAY ==
--- NOTE | 2022-12-27 16:17 | DI.RAD.S_ITS ---
PROCEDURE: XR CHEST 2V INDICATIONS: Covid w/ cough TECHNIQUE: 2 views of the chest were acquired. COMPARISON: [facility], CR, XR CHEST 1V, 03/10/2020, 17:17. FINDINGS: Surgical changes and devices: None. Lungs and pleura: Lungs are clear. No pleural effusions or pneumothorax. Mediastinum: Mediastinal contours are normal. Heart size is normal. Bones and chest wall: No suspicious bony abnormalities. Soft tissues appear unremarkable. IMPRESSION: No acute cardiopulmonary abnormality is seen. Dictated by: Carrington Malik M.D. on 12/27/2022 at 16:56 Approved by: Carrington Malik M.D. on 12/27/2022 at 16:56
== END ==
PROVIDERS: Family Provider Family Medicine; PCP Family Medicine; Referring Provider Family Medicine; Visit Provider Family Medicine
DX: U07.1 COVID-19 (principal); R05.1 Acute cough
CPT/HCPCS: 71046

== ENCOUNTER → 2023-05-01 09:28 | Outpatient (CLI) | payer MEDICARE, OTHER, SELFPAY ==
--- NOTE | 2023-05-01 09:29 | DI.MRI.S_ITS ---
PROCEDURE: MR CERVICAL SPINE WO CON INDICATIONS: Spinal stenosis, cervical region TECHNIQUE: Noncontrast sagittal T1 spin echo and T2 fast spin echo, sagittal STIR, foraminal oblique sagittal T2 fast spin echo, and axial gradient echo or T2 fast spin echo through the cervical spine. COMPARISON: [facility], MR, C-SPINE WITHOUT CONTRAST, 02/26/2016, 17:11. FINDINGS: Image quality: Excellent. Alignment and Curvature: There is normal bony alignment. Bone Marrow: Degenerative endplate changes noted Spinal Cord: Visualized spinal cord has normal size and signal. No cerebellar tonsillar herniation. Paraspinous Soft Tissues: No paravertebral masses. Prevertebral soft tissues are normal in thickness. C2-C3: Normal appearance. C3-C4: Left hypertrophic arthropathy results in severe foraminal stenosis. No central or right foraminal stenosis C4-C5: Disc space narrowing and posterior disc osteophyte complex associated with moderate central stenosis. Moderate left and no right foraminal stenosis. C5-C6: Disc space narrowing and posterior disc osteophyte complex with bilateral arthropathy present. Moderate left mild right foraminal stenosis. Moderate central stenosis. C6-C7: Disc space narrowing and posterior disc osteophyte complex with moderate central stenosis. No left foraminal stenosis. Moderate right foraminal stenosis. C7-T1: Normal appearance. IMPRESSION: Multilevel degenerative disc disease and arthropathy results in varying degrees of central and foraminal stenosis including severe left foraminal stenosis L3-4 and moderate central stenosis C4-5 and C5-6 and C6-7 Approved by: Sourav Gómez M.D. on 05/02/2023 at 18:45
== END ==
PROVIDERS: Family Provider Family Medicine; PCP Family Medicine; Referring Provider Physical Medicine & Rehabilitation Pain Medicine; Visit Provider Physical Medicine & Rehabilitation Pain Medicine
DX: M48.02 Spinal stenosis, cervical region (principal); M50.321 Other cervical disc degeneration at C4-C5 level; M47.812 Spondylosis without myelopathy or radiculopathy, cervical region
CPT/HCPCS: 72141

== ENCOUNTER → 2024-08-08 07:52 | Outpatient (CLI) | payer MEDICARE, OTHER, SELFPAY ==
[2024-08-08 08:44] LABS: COVID-19 CEPHEID 4-PLEX PCR Negative (Negative); Influenza A - CEPHEID Flu A NEGATIVE (NEGATIVE); Influenza B - CEPHEID Flu B NEGATIVE (NEGATIVE); Respiratory Syncytial Virus Negative (Negative)
== END ==
PROVIDERS: Family Provider Family Medicine; PCP Family Medicine; Visit Provider Chiropractor
DX: R05.1 Acute cough (principal)
CPT/HCPCS: 0241U

== ENCOUNTER 2024-10-30 17:26 | Emergency (ER) | payer MEDICARE, SELFPAY ==
[2024-10-30 17:30] VITALS: BP 161/80; PULSE 83; RESP 16; TEMP 37.1; O2SAT 99; BMI 28.2
--- NOTE | 2024-10-30 18:01 | ED.ABDPAIN ---
HPI - Abdominal Pain General Chief Complaint: Abdominal Pain Stated Complaint: uti, lower abd pain Time Seen by Provider: 10/30/24 17:40 Source: patient Mode of arrival: Ambulatory History of Present Illness HPI narrative: 69-year-old male with history of remote appendectomy, no other prior abdominopelvic surgeries recalled, has 4 days duration of suprapubic and right lower quadrant discomfort, some on the left side now. Last bowel movement earlier today without black or red color, nonmucoid, not loose, did not make the pain better or worse. No nausea or vomiting. No painful or frequent urination. No flank area discomfort. No cough chest pain shortness of breath. MD complaint: abdominal pain Related Data Previous Rx's ?Medication ?Instructions ?Recorded lansoprazole 30 mg capsule,delayed 30 mg PO DAILY #90 caps 09/28/24 release pitavastatin calcium 2 mg tablet 2 mg PO QPM #90 tabs 09/28/24 amoxicillin 875 mg-potassium 1 tab PO BID #20 tabs 10/30/24 clavulanate 125 mg tablet metronidazole 500 mg tablet 500 mg PO TID #30 tabs 10/30/24 Allergies Allergy/AdvReac Type Severity Reaction Status Date / Time simvastatin AdvReac Mild muscle Verified 10/30/24 17:30 cramps Patient History Medical History Ankle pain (~2013) Atrial fibrillation Atrial fibrillation with rapid ventricular response (05/05/16) Atrial fibrillation with RVR Cardiac arrhythmia Chicken pox GERD (gastroesophageal reflux disease) Hyperlipidemia Migraines Paroxysmal A-fib Vertigo Surgical History History of esophagogastroduodenoscopy (EGD) (~08/2013) History of esophagogastroduodenoscopy (EGD) (10/09/14) Status post appendectomy Status post colonoscopy (~08/2013) Family History Brother Age: 65 Heart disease Hypertension High cholesterol Depression Tobacco use disorder Father Depression Mother Age: 92 Depression Dementia without behavioral disturbance, unspecified dementia type Sister Age: 69 High cholesterol Depression alcohol intake frequency: 0-2 drinks per day Exam Narrative Exam Narrative: GENERAL: Well-developed patient, in mild distress. HEAD: Atraumatic. Normocephalic. EYES: Pupils equal round and reactive. Extraocular motions intact. No scleral icterus. No injection or drainage. ENT: Nose without bleeding, purulent drainage. Throat without erythema, tonsillar hypertrophy or exudate. Airway patent. NECK: Trachea midline. Non tender CARDIOVASCULAR: Regular rate and rhythm without murmurs, gallops, or rubs. RESPIRATORY: Clear to auscultation. Breath sounds equal bilaterally. No wheezes, rales, or rhonchi. GASTROINTESTINAL: Tenderness right lower quadrant more so than suprapubic and left lower quadrant, nondistended, no guarding or rebound, bowel tones unremarkable. EXTREMITIES: No edema or joint tenderness. BACK: Nontender without deformity or crepitance. No flank tenderness. NEURO: AOx3. Motor functions grossly nonfocal. SKIN: No rash or erythema of visible areas Initial Vital Signs Initial Vital Signs: Vital Signs Temperature 98.7 F 10/30/24 17:30 Pulse Rate 83 10/30/24 17:30 Respiratory Rate 16 10/30/24 17:30 Blood Pressure 161/80 H 10/30/24 17:30 Pulse Oximetry 99 10/30/24 17:30 Oxygen Delivery Method Room Air 10/30/24 17:30 Course Orders Ordered: Discontinued Medications Hydrocodone Bitart/Acetaminophen (Hydrocodone/Acet 5/325 Prepack) 1 bottle MISC DIRECTED ONE Stop: 10/30/24 21:15 Last Admin: 10/30/24 21:41 Dose: 1 bottle Documented By: Sodium Chloride (Normal Saline 0.9%) 1,000 mls @ 500 mls/hr IV BOLUS ONE Stop: 10/30/24 20:33 Last Infusion: 10/30/24 21:00 Dose: Infused Documented By: Admin: 10/30/24 18:52 Dose: 500 mls/hr Documented By: Piperacillin Sod/Tazobactam (Sod 4.5 gm/ Sodium Chloride) 100 mls @ 200 mls/hr IV NOW ONE Stop: 10/30/24 19:56 Last Infusion: 10/30/24 20:50 Dose: Infused Documented By: Admin: 10/30/24 20:18 Dose: 200 mls/hr Documented By: Ondansetron HCl (Ondansetron 4 Mg/2 Ml Inj) 4 mg IV NOW PRN PRN Reason: Nausea And Vomiting Ondansetron HCl (Ondansetron 4 Mg Odt) 4 mg PO NOW PRN PRN Reason: Nausea And Vomiting Vital Signs Vital signs: Vital Signs - 8 hr 10/30/24 17:30 Temperature 98.7 F Pulse Rate 83 Respiratory Rate 16 Blood Pressure 161/80 H Pulse Oximetry 99 Oxygen Delivery Method Room Air MDM - Abdominal Pain Lab Data Attestation: I reviewed the patient's lab results. Lab results narrative: White blood cell count 6900, hemoglobin 13.7, platelets adequate. 10/30/24 18:11 10/30/24 18:11 Labs: Lab Results 10/30/24 Range/Units 18:11 WBC 6.9 (4.5-11.0) X10^3/uL RBC 4.11 L (4.5-5.9) X10^6/uL Hgb 13.7 (13.5-17.5) g/dL Hct 38.9 L (41-53) % MCV 94.6 (80-100) fL MCH 33.2 (26-34) PG MCHC 35.1 (30-36) % RDW 12.4 (11.6-14.8) % Plt Count 155 (150-400) X10^3/uL Neut % (Auto) 67.3 (50-75) % Lymph % (Auto) 21.6 L (25-40) % [place] % (Auto) 9.1 (3-14) % Eos % (Auto) 1.6 L (2-4) % Baso % (Auto) 0.4 (0-2) % Neut # (Auto) 4600 (5277-8244) /uL Lymph # (Auto) 1500 (8175-9255) /uL [place] # (Auto) 600 (0-900) /uL Eos # (Auto) 100 (0-450) /uL Baso # (Auto) 0 (0-100) /uL Sodium 137 (137-145) mmol/L Potassium 4.2 (3.4-5.1) mmol/L Chloride 105 (98-107) mmol/L Carbon Dioxide 23 (22-32) mmol/L BUN 15 (9-20) mg/dL Creatinine 0.70 (0.66-1.25) mg/dL Estimated GFR > 60 (>60) mL/min BUN/Creatinine Ratio 21.4 (6-22) Glucose 131 H (70-99) mg/dL Calcium 8.6 (8.4-10.2) mg/dL Total Bilirubin 0.6 (0.2-1.3) mg/dL AST 50 (17-59) IU/L ALT 50 H (<50) IU/L Alkaline Phosphatase 87 (38-126) U/L Total Protein 7.5 (6.3-8.2) g/dL Albumin 4.3 (3.5-5.0) g/dL Globulin 3.2 (1.7-4.1) g/dL Albumin/Globulin Ratio 1.3 (1.0-2.8) Lipase 115 (23-300) U/L Point of care testing: Urine Dip Bedside Urine Glucose Negative Bedside Urine Bilirubin - Negative Bedside Urine Ketone - Negative Urine Specific [place] 1.010 Bedside Urine Occult Blood - Negative Bedside Urine pH 6.0 Bedside Urine Protein - Negative Bedside Urine Urobilinogen +/- 1mg Bedside Urine Nitrite - Negative Bedside Urine Leukocytes - Negative Esterase Imaging Data CT scan - abdomen/pelvis: Radiologist's Impression: [place] [address] CT Scan Report Signed Patient: Zhou Sahu MR#: [id number] : 1955 Acct:[id number] Age/Sex: 69 / M Date of Service: 10/30/24 Loc: ED Accession Number: [id number] Procedure: CT abdomen pelvis w con Ordering Provider: Josias Contreras MD PROCEDURE: CT ABDOMEN PELVIS W CON INDICATIONS: RLQ abd pain, prior appy, tender TECHNIQUE: After the administration of intravenous contrast, axial sections acquired from the lung bases to the pubic symphysis. Coronal and sagittal reformats were performed. For radiation dose reduction, the following was used: automated exposure control, adjustment of mA and/or kV according to patient size. COMPARISON: None. FINDINGS: Image quality: Diagnostic. Lower Chest: No significant findings. ABDOMEN: Liver: No solid mass. Hepatic steatosis. Gallbladder: No radiopaque gallstones or wall thickening. Biliary ducts: No biliary dilation. Pancreas: No ductal dilation. Spleen: Size is within normal limits. Adrenal Glands: No adrenal nodules. Kidneys and Ureters: No hydronephrosis. No solid mass. No complex renal cystic lesion which requires follow up. Stomach and Bowel: Normal colonic caliber, without significant wall thickening. Extensive colonic diverticulosis with moderate acute diverticulitis involving the mid sigmoid colon. Possible contained micro perforation with significant adjacent stranding identified. No evidence for drainable fluid collection or abscess. No evidence for small bowel obstruction or associated inflammatory changes. Peritoneum: No abnormal intraperitoneal fluid. No free air. Ventral Wall: There is a fat-containing umbilical hernia without acute inflammation. Abdominal Nodes: No retroperitoneal or mesenteric adenopathy by size criteria. Vessels: Scattered atherosclerotic calcifications of the abdominal aorta and iliac vessels without aneurysmal dilatation. The inferior vena cava appears patent. PELVIS: Pelvic Organs: Unremarkable. Bladder: No bladder wall thickening, accounting for underdistention. Pelvic Nodes: No enlarged lymph nodes. Miscellaneous: No inguinal hernias are seen. Bones: No aggressive osseous abnormality. Visualized osseous structures appear intact without acute fracture or focal destructive lesion. No acute compression fractures of the imaged spine. IMPRESSION: Colonic diverticulosis with acute diverticulitis involving the mid sigmoid colon. There is a small focus of possible contained perforation. No evidence for organized fluid collection/abscess or drainable fluid collection. Other chronic/non-acute findings as above. Findings were discussed with Dr. Contreras at 1953hrs. Dictated by: Tony Aguilar M.D. on 10/30/2024 at 19:48 Approved by: Tony Aguilar M.D. on 10/30/2024 at 19:55 MDM Narrative Medical decision making narrative: 69-year-old male with history of diverticulosis, complains of 4 days duration lower abdominal pain suprapubic and right-sided, now left-sided. Some tenderness lower abdomen right-sided, prior remote history of appendectomy. Afebrile, sirs screen negative. DDx diverticulitis, colitis, mesenteric adenitis, UTI, ureteral stone, hernia, muscular, other. 1999, phone call from Radiology, concerned there might be a mid-sigmoid small contained focal perforated diverticular abscess. Await Radiology report. Keep NPO. NKDA. IV Zosyn. CT report abdomen and pelvis. Impressions: ?Colonic diverticulosis with acute diverticulitis involving the mid sigmoid colon. There is a small focus of possible contained perforation. No evidence for organized fluid collection/abscess or drainable fluid collection. See radiology report. We will consult surgery. 2014, case discussed with general surgery Dr. Desai who will come see patient here in the ED. Surgery reviewed images independently, and saw patient. Dr Desai feels that CT does not show perforation but shows local inflammatory change. Offered admission for further treatment of diverticulitis, declined. IV Zosyn given prior. Trial of outpatient antibiotics Augmentin and Flagyl, prescription sent to his pharmacy. Advised recheck with [facility] in [facility] days, or here if arrange was can not be made as an outpatient. Discharged home per patient preference, with family. Return precautions discussed. Discharge Plan Departure Patient Disposition: Home Clinical Impression: Diverticulitis Instructions: DI for Diverticulitis Activity Restrictions/Additional Instructions: Lower abdominal discomfort for the last 4 days. No fever on triage. Lower quadrant abdominal tenderness present. Pain worse with movement. CT abdomen and pelvis was read by radiologist as suspicious for diverticulitis with a focal or small abscess. Consultation with general surgery Dr. Desai here in the emergency department, who reviewed your images and saw and examined view. Surgery relayed to me that on his review of images does not believe that there is an actual focal perforation but a little bit mount of fluid in the area. Admission was discussed, declined. Outpatient management elected for now after your discussion with surgeon. Prescription for further antibiotics Augmentin and Flagyl 10 day course sent to your pharmacy. Take antibiotics as directed. Home pack of analgesic hydrocodone/acetaminophen to use if needed. Recheck advised with your regular doctor in the next couple of days. Or with General surgery Clinic, or here in the emergency department. Return earlier for any change worsening symptoms or any concerns at any time prior. Prescriptions: New amoxicillin-pot clavulanate 875-125 mg tablet 1 tab PO BID Qty: 20 0RF metronidazole 500 mg tablet 500 mg PO TID Qty: 30 0RF No Action pitavastatin calcium 2 mg tablet 2 mg PO QPM Qty: 90 3RF lansoprazole 30 mg capsule,delayed release(DR/EC) 30 mg PO DAILY Qty: 90 3RF Referrals: Brandon Bender MD [Physician, General Surgery] Brendan Prasad MD [Primary Care Provider, Family Practice] Stand Alone Forms: Patient Portal/API
[2024-10-30 18:17] LABS: Add Manual Diff / Slide Review NO; Hematocrit 38.9 % (41-53); Hemoglobin 13.7 g/dL (13.5-17.5); Lymphocytes Absolute Auto 1500 /uL (1100-4500); Mean Corpuscular HGB Conc 35.1 % (30-36); Mean Corpuscular Hemoglobin 33.2 PG (26-34); Mean Corpuscular Volume 94.6 fL (80-100); Platelet Count 155 X10^3/uL (150-400)
--- NOTE | 2024-10-30 18:33 | DI.CT.S_ITS ---
PROCEDURE: CT ABDOMEN PELVIS W CON INDICATIONS: RLQ abd pain, prior appy, tender TECHNIQUE: After the administration of intravenous contrast, axial sections acquired from the lung bases to the pubic symphysis. Coronal and sagittal reformats were performed. For radiation dose reduction, the following was used: automated exposure control, adjustment of mA and/or kV according to patient size. COMPARISON: None. FINDINGS: Image quality: Diagnostic. Lower Chest: No significant findings. ABDOMEN: Liver: No solid mass. Hepatic steatosis. Gallbladder: No radiopaque gallstones or wall thickening. Biliary ducts: No biliary dilation. Pancreas: No ductal dilation. Spleen: Size is within normal limits. Adrenal Glands: No adrenal nodules. Kidneys and Ureters: No hydronephrosis. No solid mass. No complex renal cystic lesion which requires follow up. Stomach and Bowel: Normal colonic caliber, without significant wall thickening. Extensive colonic diverticulosis with moderate acute diverticulitis involving the mid sigmoid colon. Possible contained micro perforation with significant adjacent stranding identified. No evidence for drainable fluid collection or abscess. No evidence for small bowel obstruction or associated inflammatory changes. Peritoneum: No abnormal intraperitoneal fluid. No free air. Ventral Wall: There is a fat-containing umbilical hernia without acute inflammation. Abdominal Nodes: No retroperitoneal or mesenteric adenopathy by size criteria. Vessels: Scattered atherosclerotic calcifications of the abdominal aorta and iliac vessels without aneurysmal dilatation. The inferior vena cava appears patent. PELVIS: Pelvic Organs: Unremarkable. Bladder: No bladder wall thickening, accounting for underdistention. Pelvic Nodes: No enlarged lymph nodes. Miscellaneous: No inguinal hernias are seen. Bones: No aggressive osseous abnormality. Visualized osseous structures appear intact without acute fracture or focal destructive lesion. No acute compression fractures of the imaged spine. IMPRESSION: Colonic diverticulosis with acute diverticulitis involving the mid sigmoid colon. There is a small focus of possible contained perforation. No evidence for organized fluid collection/abscess or drainable fluid collection. Other chronic/non-acute findings as above. Findings were discussed with Dr. Contreras at 1953hrs. Dictated by: Tony Aguilar M.D. on 10/30/2024 at 19:48 Approved by: Tony Aguilar M.D. on 10/30/2024 at 19:55
[2024-10-30] MEDS: SODIUM CHLORIDE 0.9% 1,000 ML 500 ML IV (18:52)
[2024-10-30 20:04] LABS: Alanine Aminotransferase 50 IU/L (<50); Albumin 4.3 g/dL (3.5-5.0); Albumin Globulin Ratio 1.3 (1.0-2.8); Alkaline Phosphatase 87 U/L (38-126); Blood Urea Nitrogen 15 mg/dL (9-20); Calcium 8.6 mg/dL (8.4-10.2); Carbon Dioxide 23 mmol/L (22-32); Chloride 105 mmol/L (98-107); Estimated Glomerular Filt Rate > 60 mL/min (>60); Globulin 3.2 g/dL (1.7-4.1); Glucose 131 mg/dL (70-99); HEMOLYSIS 28 (0-50); Lipase 115 U/L (23-300); Potassium 4.2 mmol/L (3.4-5.1); Sodium 137 mmol/L (137-145); Total Protein 7.5 g/dL (6.3-8.2)
[2024-10-30] MEDS: PIPERACILLIN/TAZO 4.5 GM in SODIUM CHLORIDE 0.9% 100 ML IV (20:18)
--- NOTE | 2024-10-30 21:13 | PM.HP.IH.1 ---
History of Present Illness History of Present Illness Date Patient Seen: 10/30/24 Time Patient Seen: 08:30 Date of Onset of Symptoms: 10/28/24 Chief complaint: uti, lower abd pain Narrative: Patient is a 69-year-old white male presents to the emergency room from urgent care states he was having low abdominal pain x2 days mostly just with movement denies any nausea vomiting diarrhea states he had a normal bowel movement today but no other problems eyes any fever chills or night sweats just states it mostly hurts with the walking and rapid movements. The patient's worked up in the emergency room was noted to have a WBC 6.9 hemoglobin is 13.7 hematocrit is 38.9 platelets 155,000 sodium is 137 potassium 4.2 chloride 105 bicarb is 23 BUN 15 creatinine 0.70 random blood sugar is 131 total bilirubin is 0.6 AST is 50 ALT is 50 alkaline phosphatase 87 lipase [address] scan performed which shows an absent appendix normal gallbladder atherosclerotic vascular disease peripheral vascular disease moderate diverticulosis of the colon with some moderate inflammation of the mid sigmoid area with some fluid in the mesentery but not an organized abscess. No free air is noted patient denies any rectal bleeding. I was asked see the patient for surgical evaluation. Allergies: Simvastatin Medications: See med list patient is not taking any anticoagulants. Past medical history: Corrective lenses, GERD, hyperlipidemia, history of AFib with RVR PAT. CT scan showing peripheral vascular disease. Patient denies any other heart lungs digestive musculoskeletal neurological seizure disorder psychiatric problems risks of Infectious diseases HIV or AIDS. Past surgical history: Appendectomy, cardiac ablation 2018, EGD 2014- colonoscopy in 2019 4- Social history: History of tobacco use less than 1/2 pack per day x6 months in his 20s denies any alcohol use uses CBD gummies denies any other drug use Vitals: Temperature 98.7? pulse 83 respirations 16 BP is 161/80 SaO2 is 99% on room air. Patient is 5 ft 6 in 175 lb Head is normocephalic eyes PERRLA EOMI is intact nares are clear septum is midline EACs and pinnae unremarkable oropharyngeal cavity moderate repair heart regular rate and rhythm without murmurs lungs are clear to auscultation no rales rhonchi or wheezes noted abdomen is soft nondistended some lower abdominal pain is noted but no rebound or guarding. Musculoskeletal good muscle tone and strength for patient's age. Impression: Moderate diverticulitis without any free air or abscess noted AFib with RVR Migraines Hyperlipidemia Plan: Discussed with the patient the findings for possible admission with IV fluids IV antibiotics and pain medications patient desires not to be admitted. We will go ahead and discharge patient with oral antibiotics and pain medications. Patient was discussed diverticular disease and its complications and need for emergent surgery all questions were answered the patient's satisfaction if he has any worsening symptoms or problems fever chills night sweats or worsening abdominal pain were to return for immediate re-evaluation all questions were answered the patient's satisfaction we will supplement with MiraLax and also increase dietary fluids. All questions were answered the patient and 's satisfaction. [facility] Medical History Ankle pain (~2013) Atrial fibrillation Atrial fibrillation with rapid ventricular response (05/05/16) Atrial fibrillation with RVR Cardiac arrhythmia Chicken pox GERD (gastroesophageal reflux disease) Hyperlipidemia Migraines Paroxysmal A-fib Vertigo Surgical History History of esophagogastroduodenoscopy (EGD) (~08/2013) History of esophagogastroduodenoscopy (EGD) (10/09/14) Status post appendectomy Status post colonoscopy (~08/2013) Family History Brother Age: 65 Heart disease Hypertension High cholesterol Depression Tobacco use disorder Father Depression Mother Age: 92 Depression Dementia without behavioral disturbance, unspecified dementia type Sister Age: 69 High cholesterol Depression Meds Home Medications and Allergies Home Medications ?Medication ?Instructions ?Recorded ?Confirmed ?Type lansoprazole 30 mg capsule,delayed 30 mg PO DAILY #90 caps 09/28/24 10/30/24 Rx release pitavastatin calcium 2 mg tablet 2 mg PO QPM #90 tabs 09/28/24 10/30/24 Rx amoxicillin 875 mg-potassium 1 tab PO BID #20 tabs 10/30/24 Rx clavulanate 125 mg tablet metronidazole 500 mg tablet 500 mg PO TID #30 tabs 10/30/24 Rx Allergies Allergy/AdvReac Type Severity Reaction Status Date / Time simvastatin AdvReac Mild muscle Verified 10/30/24 17:30 cramps Exam Vital Signs (past 8 hours): - 10/30/24 17:30 Temperature 98.7 F Pulse Rate 83 Respiratory Rate 16 Blood Pressure 161/80 H Pulse Oximetry 99 Oxygen Delivery Method Room Air Oxygen Delivery Method Room Air Objective Labs 10/30/24 18:11 10/30/24 18:11 Labs: Laboratory Results - last 24 hr 10/30/24 18:11 WBC 6.9 RBC 4.11 L Hgb 13.7 Hct 38.9 L MCV 94.6 MCH 33.2 MCHC 35.1 RDW 12.4 Plt Count 155 Neut % (Auto) 67.3 Lymph % (Auto) 21.6 L Jennings % (Auto) 9.1 Eos % (Auto) 1.6 L Baso % (Auto) 0.4 Neut # (Auto) 4600 Lymph # (Auto) 1500 Jennings # (Auto) 600 Eos # (Auto) 100 Baso # (Auto) 0 Sodium 137 Potassium 4.2 Chloride 105 Carbon Dioxide 23 BUN 15 Creatinine 0.70 Estimated GFR > 60 BUN/Creatinine Ratio 21.4 Glucose 131 H Calcium 8.6 Total Bilirubin 0.6 AST 50 ALT 50 H Alkaline Phosphatase 87 Total Protein 7.5 Albumin 4.3 Globulin 3.2 Albumin/Globulin Ratio 1.3 Lipase 115 Assessment & Plan Time-Based Coding :: [TOTAL MINUTES] spent with patient and on the chart (including review of chart, obtaining history, exam, reviewing outside data, placing orders, documenting exam and treatment plan, and counseling patient) on [DATE]. [employer] Document charge(s): Yes
[2024-10-30 21:43] VITALS: BP 170/91; PULSE 66; RESP 15; O2SAT 97
== END 2024-10-30 21:45 | disposition home or self-care (01) ==
PROVIDERS: Family Medicine; Emergency Provider Emergency Medicine; PCP Family Medicine
DX: K57.32 Diverticulitis of large intestine without perforation or abscess without bleeding (principal)
CPT/HCPCS: 36415; 74177; 80053; 81003; 83690; 85025; 96361; 96365; 99284; J2543; Q9967

== ENCOUNTER → 2025-02-06 10:36 | Outpatient (CLI) | payer MEDICARE, SELFPAY ==
[2025-02-06 11:11] LABS: Add Manual Diff / Slide Review NO; Hematocrit 43.1 % (41-53); Hemoglobin 14.8 g/dL (13.5-17.5); Lymphocytes Absolute Auto 1600 /uL (1100-4500); Mean Corpuscular HGB Conc 34.4 % (30-36); Mean Corpuscular Hemoglobin 32.3 PG (26-34); Mean Corpuscular Volume 93.8 fL (80-100); Platelet Count 151 X10^3/uL (150-400)
[2025-02-06 11:40] LABS: Alanine Aminotransferase 26 IU/L (<50); Albumin 4.9 g/dL (3.5-5.0); Albumin Globulin Ratio 1.6 (1.0-2.8); Alkaline Phosphatase 62 U/L (38-126); Blood Urea Nitrogen 17 mg/dL (9-20); Calcium 9.1 mg/dL (8.4-10.2); Carbon Dioxide 25 mmol/L (22-32); Chloride 102 mmol/L (98-107); Cholesterol 227 mg/dL (140-199); Estimated Glomerular Filt Rate > 60 mL/min (>60); Globulin 3.0 g/dL (1.7-4.1); Glucose 99 mg/dL (70-99); HDL Cholesterol 72 mg/dL (40-60); HEMOLYSIS < 15 (0-50); Potassium 4.7 mmol/L (3.4-5.1); Sodium 137 mmol/L (137-145); Total Protein 7.9 g/dL (6.3-8.2); Triglycerides 76 mg/dL (35-150)
== END ==
PROVIDERS: PCP Family Medicine; Referring Provider Family Medicine; Visit Provider Family Medicine
DX: I48.0 Paroxysmal atrial fibrillation (principal); I10 Essential (primary) hypertension; E78.2 Mixed hyperlipidemia
CPT/HCPCS: 36415; 80053; 80061; 85025